=== PATIENT | female | born 2000 | race African-American/Black ===

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

== ENCOUNTER 2020-01-31 21:36 | Emergency (ER) | payer MEDICAID ==
[2020-01-31] MEDS ORDERED: NORMAL SALINE 1000 ML 1,000 ML IV ONE (21:49)
--- NOTE | 2020-01-31 21:50 | ER Document Report ---
ED Medical Screen (RME) - General Chief Complaint: Vomiting Stated Complaint: VOMITING Time Seen by Provider: 01/31/20 21:45 Primary Care Provider: PRASANNA DOBSON NP [Primary Care Provider] - Follow up as needed Information source: Patient Notes: Patient presents complaining of left lower quadrant pain that started this evening. Patient reports nausea and vomiting times about 10 episodes today. Patient is currently 11 weeks . Patient denies any urinary symptoms, vaginal bleeding or discharge. Patient denies any fever. I have greeted and performed a rapid initial assessment of this patient. A comprehensive ED assessment and evaluation of the patient, analysis of test results and completion of the medical decision making process will be conducted by additional ED providers. TRAVEL OUTSIDE OF THE [place] IN LAST 30 DAYS: No - Related Data Allergies/Adverse Reactions: No Known Allergies Allergy (Verified 09/17/18 15:45) Past Medical History Renal/ Medical History: Denies: Hx Peritoneal Dialysis Past Surgical History: Reports: Hx Tonsillectomy - Immunizations Immunizations up to date: Yes Hx Diphtheria, Pertussis, Tetanus Vaccination: Yes Physical Exam - Abdominal Tenderness: Tender - Left lower quadrant Doctor's Discharge - Discharge Referrals: PRASANNA DOBSON NP [Primary Care Provider] - Follow up as needed
[2020-01-31 21:54] VITALS: BP 143/75
[2020-01-31 22:56] LABS: APPEARANCE,URINE SLIGHTLY-CLOUDY; BILIRUBIN,URINE NEGATIVE (NEGATIVE); COLOR,URINE YELLOW; GLUCOSE, URINE NEGATIVE (NEGATIVE); KETONES,URINE 80 mg/dL (NEGATIVE); LEUKOCYTE ESTERASE,URINE TRACE (NEGATIVE); NITRITE,URINE NEGATIVE (NEGATIVE); PROTEIN,URINE 30 mg/dL (NEGATIVE); URINE SPECIFIC GRAVITY 1.026; UROBILINOGEN,URINE NEGATIVE mg/dL (<2.0)
--- NOTE | 2020-02-01 | RADIOLOGY REPORT (SQ) ---
EXAM DESCRIPTION: US LESS THAN 14 WEEKS COMPLETED DATE/TME: 01/31/2020 21:49 CLINICAL HISTORY: 19 years ,Female ,LLQ pain COMPARISON: None. TECHNIQUE: Contiguous axial images obtained through the pelvis without IV contrast. Coronal and sagittal reformatted images obtained. This exam was performed according to our department optimization program which includes automated exposure control, adjustment of the mA and/or kv according to patient size and/or use of iterative reconstruction technique. FINDINGS: Uterus is 10.8 x 8.3 x 7.1 cm. There is an intrauterine gestational sac with a single pole measuring 4.2 cm. Heart rate 160 bpm. Nonvisualization of yolk sac. Both ovaries appear unremarkable. No free fluid. Cervix is closed and measures 4.7 cm. Subjectively normal GABRIELA. IMPRESSION: Living IUP corresponding to 11 weeks.
== END 2020-02-01 01:54 | disposition left against medical advice (07) ==
LOC: ER 21:36
DX: O26.91 Pregnancy related conditions, unspecified, first trimester (principal); R10.32 Left lower quadrant pain; R11.2 Nausea with vomiting, unspecified; Z3A.11 11 weeks gestation of pregnancy
CPT/HCPCS: 76801; 81001; 99281